=== PATIENT | female | born 1940 | race Caucasian/White ===

== ENCOUNTER 2017-10-22 12:51 | Outpatient (CLI) | payer MEDICARE ==
[2017-10-22 14:05] LABS: #Eosinphils 0.1 thou/uL (0.0-0.7); #Lymphocytes 2.3 thou/uL (1.20-3.40); #Monocytes 0.7 thou/uL (0.11-0.59); #Neutrophils 5.7 thou/uL (1.40-6.50); %Basophils 0.5 % (0.0-1.0); %Eosinophils 1.1 % (0.0-10.0); %Lymphocytes 26.2 % (21.0-51.0); %Monocytes 7.7 % (0.0-10.0); %Neutrophils 64.5 % (42.0-75.0); Hemoglobin 15.3 g/dL (12.0-16.0); Mean Corpuscular HGB CONC 33.1 g/dL (32.0-36.0); Mean Corpuscular Hemoglobin 31.6 pg (27.0-31.0); Mean Corpuscular Volume 95.5 fl (81.0-99.0); Mean Platelet Volume 8.8 fL (7.4-10.4); Platelet Count 209 thou/uL (130-400); RBC Distribution Width 12.5 % (11.5-14.5); Red Blood Cell (RBC) Count 4.83 mill/uL (4.20-5.40); White Blood Cell (WBC) Count 8.8 thou/uL (4.8-10.8)
[2017-10-22 14:07] LABS: Bilirubin Negative (Negative); Blood, Urine Negative (Negative); Clarity CLEAR (Clear); Glucose, Urine (Dipstick) 100 mg/dL (Negative); Leukocyte Moderate (Negative); Nitrite Negative (Negative); Protein, Urine (Dipstick) Negative (Neg-Trace); Specific Gravity, Urine 1.018 (1.002-1.036); Urobilinogen 0.2 mg/dL (0.2-1.0); pH, Urine 5.5 (5.0-9.0)
[2017-10-22 14:11] LABS: Bacteria/HPF None Seen HPF (None Seen); Hyaline Casts/LPF 0-3 HYALINE CAST LPF (0-3 Hyaline); Pathc Cast-AUWi Flag 0.27 (0-2.49); Squamous Epithelial 0-3 HPF (0-3)
[2017-10-22 14:27] LABS: Anion Gap 14 mmol/L (10-20); BUN (Urea Nitrogen) 31 mg/dL (9.8-20.1); Calc. Creatinine Clearance 0 mL/min (70-130); Calcium 10.1 mg/dL (7.8-10.44); Carbon Dioxide 29 mmol/L (23-31); Chloride 101 mmol/L (98-107); Estimated GFR-MDRD 29; Glucose 69 mg/dL (83-110); Potassium 4.6 mmol/L (3.5-5.1); Sodium 139 mmol/L (136-145)
--- NOTE | 2017-10-29 19:37 | EKG ---
Test Reason : Blood Pressure : / mmHG Vent. Rate : 082 BPM Atrial Rate : 082 BPM P-R Int : 186 ms QRS Dur : 140 ms QT Int : 404 ms P-R-T Axes : 020 -23 -11 degrees QTc Int : 472 ms Sinus rhythm with marked sinus arrhythmia with occasional Premature ventricular complexes Right bundle branch block Possible Lateral infarct , age undetermined Abnormal ECG No previous ECGs available Confirmed by LENNY LOREDO (2) on 10/29/2017 7:37:30 PM Referred By: MARY Confirmed By:LENNY LOREDO
== END 2017-10-22 12:52 | disposition home or self-care (01) ==
LOC: LABBT 12:51
PROVIDERS: ATTEND Orthopaedic Surgery
DX: Z01.818 Encounter for other preprocedural examination (principal); M19.012 Primary osteoarthritis, left shoulder
CPT/HCPCS: 80048; 81001; 85025; 87081; 93005; 93010

== ENCOUNTER 2017-10-22 13:30 | Inpatient (IN) | payer MEDICARE ==
[2017-10-22 13:16] VITALS: BMI 40.3
[2017-10-29] MEDS ORDERED: Midazolam HCl 2 mg/2 ml Vial ONE (06:30)
[2017-10-29] MEDS ORDERED: Fentanyl 100 MCG/2 ML VIAL ONE (06:30)
[2017-10-29] MEDS ORDERED: CEFAZOLIN/Water 2 GM/20 ML SYRINGE ONE (06:34)
[2017-10-29] MEDS ORDERED: Tranexamic Acid 1,000 MG/100 ML BAG ONE ×2 (06:34→09:44)
[2017-10-29] MEDS ORDERED: traMADol HCl 50 MG TAB PO PRN ×4 (06:58→07:57)
[2017-10-29] MEDS ORDERED: HYDROcodone/Acetaminophen 7.5/325 mg Tablet PO PRN ×2 (06:58)
[2017-10-29] MEDS ORDERED: Vancomycin HCl 1.5 GM in Sodium Chloride 0.9% 250 ML 300 ML IVPB SCH (07:00)
[2017-10-29] MEDS ORDERED: Alendronate Sodium 70 mg Tablet PO SCH (07:15)
[2017-10-29] MEDS: Glimepiride 2 MG TAB PO SCH ×2 (07:18→18:43)
[2017-10-29] MEDS: Enoxaparin Sodium 30 MG/0.3 ML SYRINGE SC SCH (07:19)
[2017-10-29] MEDS ORDERED: Phenylephrine 10 MG/NS 250 ML 250 ML ONE (07:35)
[2017-10-29] MEDS ORDERED: Promethazine HCl 25 MG/ML VIAL IM PRN ×2 (07:57→09:54)
[2017-10-29] MEDS ORDERED: Zolpidem Tartrate 5 MG TAB PO PRN (07:57)
[2017-10-29] MEDS ORDERED: Ropivacaine 0.2% 550 ML 550 ML NERVE BLCK SCH (07:57)
[2017-10-29] MEDS ORDERED: Ondansetron HCl/PF 4 MG/2 ML Vial IVP PRN ×2 (07:57→09:54)
[2017-10-29] MEDS ORDERED: HYDROcodone/Acetaminophen 10/325 mg Tablet PO PRN ×2 (07:57)
[2017-10-29] MEDS: Lisinopril 20 MG TAB PO SCH (07:59)
[2017-10-29] MEDS ORDERED: Fentanyl 100 MCG/2 ML VIAL IV PRN (07:59)
--- NOTE | 2017-10-29 09:36 | OP ---
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 PROCEDURES: Reverse total shoulder arthroplasty and biceps tenodesis. IMPLANTS USED: [employer]/29 mm baseplate with a 36 mm eccentric glenosphere, 5B stem, +[address] tray and a +9 mm polyethylene. SURGEON: Shantanu Carpio M.D. FINISHING DEPARTMENT SUPERVISOR: Jovan Fung PA-C. BLOOD LOSS: 200 mL. SPECIMEN: None. DRAINS: None. COMPLICATIONS: None. NARRATIVE REPORT: After appropriate consent was obtained, the patient was taken to the operating [facility] m where general anesthesia was induced. She was placed in a beach chair position. Left arm was prep ped and draped in the usual sterile fashion. Oblique incision was made in the deltopectoral interval . Cephalic vein was identified and preserved. Dissection was carried down to the conjoint tendon wh ich was retracted medially. The subscapularis was taken down. The biceps tendon was in poor conditi on, it was taken down off the superior glenoid tubercle and tenodesed to the pectoralis tendon. Exce ss tendon was removed. The shoulder was then easily dislocated. I opened the humerus with a T handl e and then cut a 20 mm retroversion superior cut. The subscapularis had been previously tagged. I u sed a subscapularis to follow this down to the anterior glenoid and a Bankart retractor was placed an teriorly, and drill was placed posteriorly. I drilled a center hole in the glenoid and reamed with a one-step reamer. Irrigation was performed. The base plate was deployed without difficulty. Screws were inserted in the usual technique with good compression and fixation. Glenosphere was deployed w ithout difficulty and the screw was tightened. Attention was turned back to the humerus which was op ened with a T handle, and after using the acetabular reamer, I then also used a metaphyseal reamer. The appropriate size stem was trialed and polyethylene was trialed until the implants were determined as above. I did drill holes through the humerus, and a cottony Dacron suture was placed around the prosthesis through bone to facilitate repair of the subscapularis. Irrigation was performed. Perman ent implants were placed. Shoulder was reduced. The subscapularis was repaired back to bone using t he cottony Dacron suture. Irrigation performed again. The deltopectoral interval was tacked shut wi th 0 Vicryl, subcutaneous tissue was closed with 2-0 Vicryl, and skin was closed with abran, and st erile dressing was applied.
[2017-10-29] MEDS ORDERED: Promethazine HCl 25 MG/ML VIAL SLOW IVP PRN (09:54)
[2017-10-29] MEDS ORDERED: Promethazine HCl 25 MG/ML VIAL ONE (10:37)
[2017-10-29] MEDS: Dextrose 5 %-0.45 % NaCl 1,000 ML IV SCH ×2 (13:17→21:31)
[2017-10-29] MEDS: CEFAZOLIN/Water 2 GM/20 ML SYRINGE SLOW IVP SCH ×2 (13:52→22:12)
[2017-10-29] MEDS ORDERED: Dextrose 50% Abboject 50 ML SYRINGE SLOW IVP PRN (14:06)
[2017-10-29] MEDS ORDERED: Dextrose 5% in Water 1,000 ML IV PRN (14:06)
[2017-10-29] MEDS ORDERED: HumaLOG 300 UNITS/3 ML VIAL SC PRN (14:06)
[2017-10-29] MEDS ORDERED: Ropivacaine 0.5% HCl/PF (150 MG/30 ML VIAL) ONE (14:23)
[2017-10-29] MEDS ORDERED: Ropivacaine 0.2% HCl/PF (40 MG/20 ML VIAL) ONE (14:23)
[2017-10-29] MEDS ORDERED: Glycopyrrolate 0.2 MG/ML 5 ML SYRINGE ONE (16:57)
[2017-10-29] MEDS ORDERED: Propofol 200 MG/20 ML VIAL ONE (16:57)
[2017-10-29] MEDS ORDERED: PHENYLEPHRINE-NS 100 MCG/ML 10 ML SYRINGE ONE (16:57)
[2017-10-29] MEDS ORDERED: Ondansetron HCl/PF 4 MG/2 ML Vial ONE (16:57)
[2017-10-29] MEDS ORDERED: Dexamethasone 20 MG/5 ML VIAL ONE (16:57)
[2017-10-29] MEDS ORDERED: ePHEDrine/0.9% NaCl/PF SYRINGE 50 mg/10 ml ONE (16:57)
[2017-10-29] MEDS ORDERED: Simvastatin 5 MG TAB PO SCH (17:00)
[2017-10-29] MEDS ORDERED: Non-Formulary Item 1 EACH (Lovastatin [Lovastatin] 20 MG) PO SCH (17:00)
[2017-10-30 08:21] VITALS: BP 127/83; TEMP 98.5
[2017-10-30] MEDS: Enoxaparin Sodium 30 MG/0.3 ML SYRINGE SC SCH (08:47)
[2017-10-30] MEDS: Lisinopril 20 MG TAB PO SCH (08:47)
[2017-10-30] MEDS: Glimepiride 2 MG TAB PO SCH (08:47)
--- NOTE | 2017-10-30 08:53 | PDOC.PN ---
- Subjective Encounter Start Date: 10/30/17 Encounter Start Time: 08:40 Subjective: Some pain in left shoulder.. - Objective MAR Reviewed: Yes Vital Signs & Weight: Vital Signs (12 hours) Temp Pulse Resp BP BP Pulse Ox 10/30/17 08:47 127/83 10/30/17 08:00 98.5 F 95 24 H 127/83 92 L 10/30/17 04:00 97.7 F 87 18 146/69 H 96 10/30/17 00:00 98.3 F 85 19 109/67 92 L Weight Weight 235 lb I&O: 10/29/17 10/30/17 10/31/17 06:59 06:59 06:59 Intake Total 1600 Balance 1600 Additional Labs: Accuchecks 10/30/17 10/29/17 10/29/17 07:37 20:56 15:22 POC Glucose 136 H 195 H 277 H Phys Exam - Physical Examination Constitutional: NAD HEENT: sclera anicteric Neck: no JVD Respiratory: no rales, clear to auscultation bilateral Cardiovascular: RRR Gastrointestinal: soft, non-tender Musculoskeletal: no edema Neurological: moves all 4 limbs Psychiatric: A&O x 3 Skin: no rash Dx/Plan - Plan * . Stable. BP satisfactory. BS ok
--- NOTE | 2017-10-30 17:02 | DIS ---
DATE OF ADMISSION: 10/29/2017 DATE OF DISCHARGE: 10/30/2017 PREOPERATIVE DIAGNOSIS: Severely degenerative arthritis, left shoulder and biceps tendonitis. POSTOPERATIVE DIAGNOSIS: Severe degenerative arthritis, left shoulder and biceps tendonitis with rot ator cuff tear. PROCEDURE: Reverse total shoulder arthroplasty with biceps tenodesis. HOSPITAL COURSE: Hospital stay was unremarkable. The patient was admitted to [place] [id number] where she work ed with staff, physical therapy, occupational therapy, and did quite well. By postoperative day 2, s he was ready to discharge home. DISCHARGE CONDITION: Good/stable. DISPOSITION: Home with family. FOLLOWUP: Would be in 10-14 days, sooner if there are problems or concerns. DISCHARGE MEDICATIONS: Given with usage instructions. Stevenson Merino PA-C, dictating for Shantanu Carpio M.D.
== END 2017-10-30 10:36 | disposition home or self-care (01) | DRG 483 ==
LOC: SURG A 10-29 05:37 → SJJU 10-29 10:24
PROVIDERS: ADMIT Orthopaedic Surgery; ATTEND Orthopaedic Surgery
PROC: 0RRK0JZ Replacement of Left Shoulder Joint with Synthetic Substitute, Open Approach (ICD-10-PCS; principal; 2017-10-29)
PROC: 0LS40ZZ Reposition Left Upper Arm Tendon, Open Approach (ICD-10-PCS; 2017-10-29)
PROC: 3E0T3BZ Introduction of Anesthetic Agent into Peripheral Nerves and Plexi, Percutaneous Approach (ICD-10-PCS; 2017-10-29)
DX: M19.012 Primary osteoarthritis, left shoulder (principal); E11.9 Type 2 diabetes mellitus without complications; I10 Essential (primary) hypertension; M75.102 Unspecified rotator cuff tear or rupture of left shoulder, not specified as traumatic; M77.8 Other enthesopathies, not elsewhere classified; Z85.038 Personal history of other malignant neoplasm of large intestine; Z96.653 Presence of artificial knee joint, bilateral; Z96.611 Presence of right artificial shoulder joint; Z90.49 Acquired absence of other specified parts of digestive tract
CPT/HCPCS: 36416; A4306; G8978-GP-CL; G8979-GP-CK; G8987-GO-CJ; G8988-GO-CJ; G8989-GO-CJ; J1100; J1650; J2250; J2405; J2550; J2704; J2795; J3010; J3370; J7050